=== PATIENT | male | born 1955 | race African-American/Black ===

== ENCOUNTER 2016-11-06 11:02 | Emergency (ER) | payer OTHER ==
[~2016-11-06] VITALS: Ht 175.3 cm; Wt 102.0 kg
[~2016-11-06 11:02] MED LIST: ACET325T51 PO; CLIN-78 PO; DIPH25CA6 PO; FAMO20T PO; INSU100I SUBQ; INSU100I13 SUBQ; LORA10CA PO; PRE20 PO; SODI15OR8 PO
[2016-11-06 11:05] VITALS: BP 172/108; PULSE 89; RESP 16; O2SAT 99
--- NOTE | 2016-11-06 11:10 | ED.REPORT ---
HPI-Dyspnea / Wheezing Date of Service Nov 06, 2016 ED Provider: Dr. Boogie Rae Patient is a 61 year old male with a history of recent pneumonia with pleural effusion, Strep intermedius empyema s/p thoracostomy 2x, diabetes mellitus, and hypertension who presents to the ED complaining of SOB. Pt experienced SOB at work today, took a break for a few minutes, but still felt lightheaded. Pt was admitted for empyema two months ago, pt states that these symptoms feel different. Pt has never had a heart attack before and has had a stress test and angiogram. Pt also has a productive cough and denies fever and chest pain. Nursing Notes Stated Complaint: SOB Chief Complaint: Respiratory Distress Nursing Notes Reviewed: Yes Allergies: Coded Allergies: clindamycin (Verified Allergy, Severe, swelling, 11/06/16) lisinopril (Verified Allergy, Severe, Anaphylaxis, 11/06/16) Penicillins (Verified Allergy, Mild, Anaphylaxis,SOB, 11/06/16) Scheduled Clindamycin (Clindamycin) 300 Mg Capsule 300 MG PO QID Famotidine (Pepcid) 20 Mg Tablet 20 MG PO BID Insulin Aspart (NovoLOG U-100 Pen) 100 Unit/Ml Insuln.pen 7 UNITS SUBQ TIDWM Insulin Glargine (Lantus U100 Solostar Insulin Pen) 100 Unit/1 Ml Insuln.pen 35 UNITS SUBQ HS Loratadine (Claritin) 10 Mg Capsule 10 MG PO DAILY Prednisone (PredniSONE) 20 Mg Tablet 60 MG PO DAILY Sodium Polystyrene Sulfonate (Sodium Polystyrene Sulfonate) 15 Gm/60 Ml Oral.susp 15 GM PO DAILY Scheduled PRN Acetaminophen (Acetaminophen) 325 Mg Tablet 650 MG PO Q4H PRN PRN For Fever diphenhydrAMINE HCl (Benadryl) 25 Mg Capsule 50 MG PO QID PRN PRN For Itching General Time Seen by MD: 11:10 Chief Complaint Shortness of breath Hx Obtained From: Patient Arrived By: Walk-in Sudden in Onset?: Yes Onset Occurred: 1 - 4 hours ago Symptom Duration: Since onset Severity: Current: No pain currently Severity: Maximum: No pain Recent Healthcare: Recent doctor visit, Recent hospitalization Similar Sx Previous: Yes Past Medical History Past Medical History The patient was admitted on 09/02/2016 and discharged on 09/16/2016 with diagnoses of community acquired pneumonia, empyema (Strep intermedius), acute respiratory failure, acute blood loss anemia, acute renal failure, hyponatremia, and hyperkalemia. Reports: Diabetes mellitus, Hyperlipidemia, Hypertension Past Surgical History Right shoulder Hernia thoracotomy 2x Smoking History Never Smoker Social History Alcohol Use: "Social" Drug Use: Denies drug use Other Social History: Good social support, , Local resident Ambulatory Status Independent Review of Systems Constitutional: Denies: Fever Respiratory: Reports: Prod cough, clear, Shortness of breath Cardiovascular: Denies: Chest pain Complete sys rev & neg: except as marked. Neurologic: Reports: Lightheaded Physical Exam Initial Vital Signs Vital Signs (First) Date Time Temp Pulse Resp B/P Pulse Ox O2 Delivery O2 Flow Rate FiO2 11/06/16 11:05 36.1 89 16 172/108 99 Room Air Initial VS: Reviewed Head / Eyes: Atraumatic, Normocephalic, PERRL ENT: Mucous membranes moist, Conjunctiva normal, No scleral icterus Abdomen / GI: Soft, Non-tender, No guarding, No rebound, No distention Back: No CVA tenderness Extremities: Vascular intact, Neuro intact, No swelling, No tenderness Skin: Warm, Dry, No cyanosis Neurologic: Alert, Oriented, Nonfocal Psychiatric: Mood/affect normal, Behavior normal, Normal thought content General/Constitutional: Awake, Alert Respiratory / Chest: Atraumatic, Breath sounds NL, Breath sounds = bilat scars on lower left chest Interpretation & Diagnostics Interpretation & Diagnostics: negative for influenza A & B Lab Results Interpretation Result Diagram: 11/06/16 1135 11/06/16 1135 Test 11/06/16 11:35 11/06/16 12:00 White Blood Count 8.9th/mm3 (3.8-10.1) Red Blood Count 4.83mil/mm3 (4.40-5.80) Hemoglobin 12.4g/dL (13.8-17.2) Hematocrit 37.5% (41.0-50.0) Mean Corpuscular Volume 77.6fL (81-100) Mean Corpuscular Hemoglobin 25.7pg (27.0-35.0) Mean Corpuscular Hemoglobin Concent 33.1% (32.0-37.0) Red Cell Distribution Width 17.4% (12.3-15.4) Platelet Count 266bil/L (150-400) Neutrophils (%) (Auto) 66.0% (40-74) Lymphocytes (%) (Auto) 25.5% (14-46) Monocytes (%) (Auto) 6.3% (4-12) Eosinophils (%) (Auto) 1.8% (0-5) Basophils (%) (Auto) 0.1% (0-3) Erythrocyte Sedimentation Rate 11mm/hr (0-30) D-Dimer 1.6mg/L (<0.50) Sodium Level 133mEq/L (134-144) Potassium Level 4.9mEq/L (3.5-5.2) Chloride Level 94mEq/L (97-108) Carbon Dioxide Level 24mmol/L (18-29) Blood Urea Nitrogen 18mg/dL (8-27) Creatinine 1.02mg/dL (0.76-1.27) Estimat Glomerular Filtration Rate 79mL/min (>59) Glucose Level 398mg/dL (60-99) Lactic Acid Level 2.1mmol/L (0.4-2.0) Calcium Level 9.8mg/dL (8.5-10.1) Magnesium Level 1.7mg/dL (1.6-2.6) Total Bilirubin 0.8mg/dL (0.0-1.2) Aspartate Amino Transf (AST/SGOT) 53U/L (0-50) Alanine Aminotransferase (ALT/SGPT) 50U/L (0-44) Alkaline Phosphatase 98U/L (25-160) Troponin T < 0.010ug/L (0.0-0.011) Pro-B-Type Natriuretic Peptide 5.00pg/mL (0-210) Total Protein 8.3g/dL (6.4-8.4) Albumin 4.3g/dL (3.4-5.0) Urine Color Straw (YELLOW) Urine Appearance Hazy (CLEAR,HAZY) Urine pH 5.5 (5.0-8.0) Urine Specific [place] 1.010 (1.003-1.035) Urine Protein Negativemg/dL (NEG,TRACE) Urine Glucose (UA) 1000mg/dL (NEGATIVE) Urine Ketones Negativemg/dL (NEGATIVE) Urine Occult Blood Negative (NEGATIVE) Urine Nitrite Negative (NEGATIVE) Urine Bilirubin Negative (NEGATIVE) Urine Urobilinogen Normalmg/dL (NORMAL) Urine Leukocyte Esterase Negative (NEGATIVE) Urine RBC 0-2/hpf (0-2) Urine WBC 0-5/hpf (0-5) Urine Epithelial Cells Occasional/hpf (NONE-MOD) Urine Crystals None seen (NONE SEEN) Urine Bacteria None/hpf (NONE-FEW) Urine Hyaline Casts None/lpf (NONE) Urine Granular Casts None seen (NONE SEEN) Urine Waxy Casts None seen (NONE SEEN) Urine Red Blood Cell Casts None seen (NONE SEEN) Urine White Blood Cell Casts None seen (NONE SEEN) Urine Mucus None seen (None Seen) Urine Trichomonas None seen (NONE SEEN) Urine Yeast None (NONE SEEN) Urinalysis Comment None Urine Culture Reflexed Not indicated ECG Interpretation ECG Interpretation: Anterior ST segment elevation V1 to V4 (chronic and patient baseline, nothing acute) Time: 11:37 Interpreted by: ED physician Normal ECG Interpretation: Normal sinus rhythm (88) X-Ray Chest Interpretation Chest Xray Interpretation: IMPRESSION: Normal for age, source of current symptoms is not seen. Dictated by: Manuel Singh M.D. on 11/06/2016 at 12:29 Approved by: Manuel Singh M.D. on 11/06/2016 at 12:29 View: Portable Interpretation / Wet Read by: Interpret - Radiologist CT Chest Interpretation MPRESSION: 1. No pulmonary embolus. 2. Resolved right lung effusion and airspace opacity with residual pleuroparenchymal scarring. 3. 5 mm and 6 mm left lower lobe pulmonary nodule; followup is recommended as below. Fleischner Society criteria for SOLID lung nodule followup. Nodule size (mm)Low-risk patientHigh-risk [id number] follow-up neededFollow-up at 12 mo; if no change, no further follow-up>4-8Dkshma-ap CT at 12 mo; if no change, no further follow-up needed.Initial follow-up CT at 6-12 mo, then 18-24 mo if no change. >6-8Initial follow-up CT at 6-12 mo, then 18-24 mo if no change. Initial follow-up CT at 3-6 mo, then 9-12 mo and 24 mo if no change. >8Follow-up CT at 3, 9, 24 mo. Or PET and/or biopsy.Same as for low-risk pts. Dictated by: Boone De M.D. on 11/06/2016 at 13:22 Approved by: Boone De M.D. on 11/06/2016 at 13:22 Study type: CT pulm angiogram Interpretation / Wet Read by: Interpret - Radiologist Re-Eval/Medical Decision Med Decision/Clinical Course No obvious cause for shortness of breath, incidental lung nodules, patients recommended to have outpatient stress test and further evaluation. Return precautions given Re-Evaluation/Progress #1: Time of Eval: 14:13 Re-Evaluation/Progress Note: Pt rechecked. Informed pt of and plan for treatment. Pt understands and agrees with plan. Re-Evaluation/Progress #2: Time of Eval: 14:56 Patient Status: Condition improved Re-Evaluation/Progress Note: Discussed plan for discharge and follow up. All questions addressed. Consultation : Referral / Consult Name: Elliot Arteaga MD Call Returned at: 14:50 Product Development Carpenter: Agrees with eval Counseled Regarding: Diagnosis, Lab results, Need for follow-up, When/why to return to ED Discharge & Departure Impression: Primary Impression: Dyspnea Dyspnea type: unspecified Qualified Code: R06.00 - Dyspnea, unspecified Additional Impression: Lung nodule Disposition: Home Discharge Condition All VS Reviewed: Yes Condition: Stable Additional Instructions: Overall your workup is reassuring. Incidentally there are 2 small lung nodules on your CAT scan which will need further evaluation. Follow-up with your regular doctor regarding a stress test these lung nodules. Return as needed for signs and symptoms of heart attack. Additionally your glucose was mildly elevated. Begin checking her glucose every morning. Referrals: [facility] (PCP) Scribe Attestation Portion of this note were transcribed by Bee Stauffer and Vlad Mancera. I, Dr. Rae personally performed the history, physcial exam, and medical decision- making: I reviewed and confirmed the accuracy for the information in the transcribed note. Signed by: abhijeet Wagoner, 10/30/16 0000 copies to: [facility],Boogie Beckhamothy Akash ROTH Nov 06, 2016 11:10 VLAD MANCERA Nov 06, 2016 11:21 Bee Stauffer Nov 06, 2016 15:15
[2016-11-06] MEDS ORDERED: 0.9% Sodium Chloride 1,000 ML IV ONE (11:23)
[2016-11-06 11:56] LABS: BASOPHILS % (AUTO) 0.1 % (0-3); EOSINOPHILS % (AUTO) 1.8 % (0-5); MONOCYTES % (AUTO) 6.3 % (4-12); Mean Corpuscular Hemoglobin 25.7 pg (27.0-35.0); Mean Corpuscular Volume 77.6 fL (81-100); Platelet Count 266 bil/L (150-400)
[2016-11-06 12:27] LABS: Magnesium 1.7 mg/dL (1.6-2.6)
[2016-11-06 12:31] LABS: TROPONIN T < 0.010 ug/L (0.0-0.011)
--- NOTE | 2016-11-06 12:31 | DRSVH ---
PROCEDURE: X-RAY CHEST, TWO VIEWS ([id number]) INDICATIONS: dyspnea, cough, H/o empyema TECHNIQUE: 2 views of the chest were acquired. COMPARISON: [facility], CR, XR CHEST 2VW, 10/07/2016, 21:59. [facility], CR, XR CHEST 2VW, 09/22/2016, 13:08. FINDINGS: Surgical changes and devices: None. Lungs and pleura: No pleural effusions or pneumothorax. Lungs are clear. Mediastinum: Mediastinal contours are normal. Heart size is normal. Bones and chest wall: No suspicious bony abnormalities. Soft tissues appear unremarkable. IMPRESSION: Normal for age, source of current symptoms is not seen. Dictated by: Manuel Singh M.D. on 11/06/2016 at 12:29 Approved by: Manuel Singh M.D. on 11/06/2016 at 12:29
[2016-11-06 12:50] LABS: APPEARANCE,URINE HAZY (CLEAR,HAZY); COLOR,URINE STRAW (YELLOW); PH,URINE 5.5 (5.0-8.0)
[2016-11-06 12:51] LABS: OCCULT BLOOD,URINE NEGATIVE (NEGATIVE); UROBILINOGEN,URINE NORMAL (NORMAL)
[2016-11-06 12:54] LABS: ERYTHROCYTE SEDIMENTATION RATE 11 mm/hr (0-30)
--- NOTE | 2016-11-06 13:24 | DRSVH ---
PROCEDURE: CT ANGIO CHEST PULMONARY EMBOLISM ([id number]) INDICATIONS: dyspnea, elevated troponin TECHNIQUE: After the administration of intravenous contrast, 2 mm thick sections acquired from the pulmonary api ramsey to the posterior costophrenic angles. 3-dimensional maximum intensity projection (MIP) coronal a nd sagittal reformats were then acquired through the thorax. For radiation dose reduction, the follo wing was used: automated exposure control, adjustment of mA and/or kV according to patient size. COMPARISON: [facility], CT, CT CHEST W CON, 09/08/2016, 18:55. [facility], CT, CT ANGIO CHEST PE, 09/02/2016, 16:32. FINDINGS: Image quality: Excellent. Pulmonary arteries: Pulmonary arteries are normal in size, and demonstrate no intraluminal filling d efects to suggest central pulmonary embolism. Lungs and pleura: Right basilar scarring is present. 6 mm diameter subpleural nodule within the left lower lobe laterally. There is a 6 mm diameter subpleural nodule within the left lower lobe laterally . Right posterior inferior pleural thickening is present. No pleural effusions or pneumothorax. Cent ral and peripheral airways are patent. Mediastinum: Heart size is normal, without pericardial effusion. No mediastinal or hilar adenopathy . Thoracic aorta is normal in caliber and enhancement. Esophagus is normal in caliber, without hiat al hernia. Bones and chest wall: No suspicious bony lesions. Ribs and thoracic spine appear intact throughout. Thyroid gland is within normal limits. No axillary or supraclavicular adenopathy. Abdomen: Visualized upper abdominal solid organs appear normal in the early arterial phase of enhanc ement. IMPRESSION: 1. No pulmonary embolus. 2. Resolved right lung effusion and airspace opacity with residual pleuroparenchymal scarring. 3. 5 mm and 6 mm left lower lobe pulmonary nodule; followup is recommended as below. Fleischner Society criteria for SOLID lung nodule followup. Nodule size (mm)Low-risk patientHigh-risk [id number] follow-up neededFollow-up at 12 mo; if no land e, no further follow-up>[id number] CT at 12 mo; if no change, no further follow-up needed.Initial f ollow-up CT at 6-12 mo, then 18-24 mo if no change. >6-8Initial follow-up CT at 6-12 mo, then 18-24 mo if no change. Initial follow-up CT at 3-6 mo, then 9-12 mo and 24 mo if no change. >8Follow-up CT at 3, 9, 24 mo. Or PET and/or biopsy.Same as for low-risk pts. Dictated by: Boone De M.D. on 11/06/2016 at 13:22 Approved by: Boone De M.D. on 11/06/2016 at 13:22
[2016-11-06 15:06] VITALS: BP 139/93; PULSE 76; RESP 19; O2SAT 98
== END 2016-11-06 15:18 | disposition home or self-care (01) ==
LOC: SED 11:02
DX: R06.00 Dyspnea, unspecified (principal); R91.8 Other nonspecific abnormal finding of lung field; I10 Essential (primary) hypertension; E11.65 Type 2 diabetes mellitus with hyperglycemia; Z87.09 Personal history of other diseases of the respiratory system; Z86.79 Personal history of other diseases of the circulatory system; Z79.4 Long term (current) use of insulin; Z79.52 Long term (current) use of systemic steroids; Z88.0 Allergy status to penicillin; Z88.8 Allergy status to other drugs, medicaments and biological substances; Z88.1 Allergy status to other antibiotic agents
CPT/HCPCS: 36415; 71020; 71275; 80053; 81000; 82308; 82948; 83605; 83735; 83880; 84484; 85025; 85379; 85651; 87804; 93005; 96360; 99285; J7030; Q9967